=== PATIENT | male | born 1990 | race Caucasian/White ===

== ENCOUNTER 2016-06-13 19:51 | Emergency (ER) | payer OTHER ==
[~2016-06-13] VITALS: Ht 170.2 cm; Wt 68.0 kg
[2016-06-13] MEDS ORDERED: CHLO0.12 (20:23)
[2016-06-13] MEDS ORDERED: IBUP80TA (20:23)
[2016-06-13] MEDS ORDERED: BUPR8SUB (20:23)
[2016-06-13] MEDS ORDERED: ASPIRIN 81 MG CHEW TABLET PO ONE (20:45)
[2016-06-13 21:11] LABS: ALBUMIN 4.1 GM/DL (3.2-5.2); ALBUMIN/GLOBULIN RATIO 1.08 (1.00-1.93); ALKALINE PHOSPHATASE 85 U/L (45-117); ALT/SGPT 21 U/L (12-78); ANION GAP 7 MEQ/L (8-16); AST/SGOT 16 U/L (15-37); BILIRUBIN,DIRECT 0.1 MG/DL (0.0-0.2); BILIRUBIN,TOTAL 0.4 MG/DL (0.2-1.0); BLOOD UREA NITROGEN 15 MG/DL (7-18); CARBON DIOXIDE LEVEL 31 MEQ/L (21-32); CHLORIDE LEVEL 102 MEQ/L (98-107); CREATININE FOR GFR 1.02 MG/DL (0.70-1.30); GLOMERULAR FILTRATION RATE > 60.0 (>60); GLUCOSE, FASTING 80 MG/DL (70-105); POTASSIUM SERUM 3.8 MEQ/L (3.5-5.1); SODIUM LEVEL 140 MEQ/L (136-145); TOTAL PROTEIN 7.9 GM/DL (6.4-8.2)
[2016-06-13 21:13] LABS: EOS % 7.3 % (0.0-3.0); LYMPH % 22.1 % (24.0-44.0); MEAN CORPUSCULAR HEMOGLOBIN 32.3 pg (27.0-33.0); MEAN CORPUSCULAR HGB CONC 35.9 g/dl (32.0-36.5); MEAN CORPUSCULAR VOLUME 90.1 fl (80.0-96.0); MONO % 6.6 % (0.0-5.0); NEUTROPHILS % 61.5 % (36.0-66.0); PLATELET COUNT, AUTOMATED 332 k/mm3 (150-450); RED CELL DISTRIBUTION WIDTH 11.6 % (11.5-14.5)
[2016-06-13 21:14] LABS: BASO # 0.1 K/mm3 (0.0-0.2); BASO % 0.6 % (0.0-1.0); EOS # 0.7 K/mm3 (0.0-0.50); LARGE UNSTAINED CELL # 0.2 K/mm3 (0.0-0.4); LARGE UNSTAINED CELL % 1.9 % (0.0-4.0); LYMPH # 2.2 K/mm3 (1.5-6.5); MONO # 0.7 K/mm3 (0.0-0.8); NEUTROPHILS # 6.2 K/mm3 (1.8-7.7)
[2016-06-13] MEDS ORDERED: ISOVUE-370 76% 100ML VIAL (Q9967) As Ordered ONE (22:16)
--- NOTE | 2016-06-13 22:40 | REPUSA ---
CT angiogram of the chest Clinical statement: Chest pain and shortness of breath. Technique: Multiple axial CT images were obtained from the thoracic inlet through the upper abdomen a fter a bolus administration of nonionic intravenous contrast. Coronal and sagittal reconstructions we re also obtained. No comparison is available. Findings: The pulmonary arteries are well-opacified with contrast, with no intraluminal filling defec ts to suggest embolism. The thoracic aorta is unremarkable. Thyroid gland is within normal limits. Th ere is no thoracic lymphadenopathy. There are no pericardial or pleural effusions. The lungs are patricia r. Limited imaging of the upper abdomen is unremarkable. There are no suspicious osseous lesions. Impression: Unremarkable CT examination of the chest. No evidence of pulmonary embolism.
[2016-06-13] MEDS ORDERED: GI COCKTAIL 50ML BTL(HYOSCYAMINE/MAALOX/LIDOCAINE VISCOUS)(1:3:1) PO ONE (23:15)
[2016-06-13 23:21] VITALS: BP 125/73
--- NOTE | 2016-06-14 08:00 | REP ---
Chest one-view HISTORY: Chest pain Comparison: None The lungs are clear. The heart is normal in size. The pulmonary vasculature is normal in appearance. Impression: No acute disease. Signed by Orion Fraga MD 06/14/2016 07:52 A
--- NOTE | 2016-06-15 05:52 | ECGEPIP ---
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
== END 2016-06-13 23:32 | disposition home or self-care (01) ==
LOC: M ED 21:30
DX: R07.9 Chest pain, unspecified (principal); Z88.0 Allergy status to penicillin; Z79.1 Long term (current) use of non-steroidal anti-inflammatories (NSAID); Z79.899 Other long term (current) drug therapy; F17.210 Nicotine dependence, cigarettes, uncomplicated

== ENCOUNTER 2019-08-07 21:11 | Observation (INO) | payer OTHER ==
[~2019-08-07] VITALS: Ht 175.3 cm; Wt 56.8 kg
[~2019-08-07 21:11] MED LIST: BUPR8SUB; CHLO0.12; IBUP80TA
[2019-08-07] MEDS ORDERED: diphenhydrAMINE 50MG/ML VIAL (J1200) IM ONE (21:30)
[2019-08-07] MEDS ORDERED: LORazepam 2 MG/ML VIAL IM ONE (21:30)
[2019-08-07] MEDS ORDERED: HALOPERIDOL 5MG/ML VIAL (J1630 PER 1) IM ONE (21:30)
[2019-08-07] MEDS ORDERED: NS 1,000 ML IV ONE (21:45)
[2019-08-07 22:39] LABS: BASO % 0.2 % (0.0-1.0); HEMATOCRIT 42.8 % (42.0-52.0); HEMOGLOBIN 15.6 g/dl (13.5-17.5); LYMPH # 0.4 10^3/uL (1.5-5.0); LYMPH % 2.9 % (24.0-44.0); MEAN CORPUSCULAR HEMOGLOBIN 31.6 pg (27.0-33.0); MEAN CORPUSCULAR HGB CONC 36.4 g/dl (32.0-36.5); MEAN CORPUSCULAR VOLUME 86.6 fl (80.0-96.0); MONO # 0.7 10^3/uL (0.0-0.8); MONO % 4.9 % (0.0-5.0); NEUTROPHILS # 12.6 10^3/uL (1.5-8.5); NEUTROPHILS % 91.6 % (36.0-66.0); PLATELET COUNT, AUTOMATED 310 10^3/uL (150-450); RED BLOOD COUNT 4.94 10^6/uL (4.30-6.10); WHITE BLOOD COUNT 13.8 10^3/uL (4.0-10.0)
[2019-08-07 23:00] LABS: AMPHETAMINES LEVEL URINE POSITIVE (NEGATIVE); BARBITURATES URINE NEGATIVE (NEGATIVE); BENZODIAZEPINES URINE NEGATIVE (NEGATIVE); CANNABINOIDS URINE POSITIVE (NEGATIVE); COCAINE METABOLITE URINE POSITIVE (NEGATIVE); METHADONE URINE NEGATIVE (NEGATIVE); OPIATES URINE NEGATIVE (NEGATIVE); PHENCYCLIDINE URINE NEGATIVE (NEGATIVE)
[2019-08-07 23:18] LABS: ACETAMINOPHEN LEVEL < 2.0 UG/ML (10.0-30.0); ALBUMIN 4.8 GM/DL (3.2-5.2); ALT/SGPT 56 U/L (12-78); BILIRUBIN,DIRECT 0.4 MG/DL (0.0-0.2); BILIRUBIN,TOTAL 1.4 MG/DL (0.2-1.0); BLOOD UREA NITROGEN 30 MG/DL (7-18); CALCIUM LEVEL 9.7 MG/DL (8.5-10.1); CARBON DIOXIDE LEVEL 27 MEQ/L (21-32); CHLORIDE LEVEL 106 MEQ/L (98-107); CPK CREATINE PHOSPHOKINASE 1954 U/L (39-308); CREATININE FOR GFR 1.45 MG/DL (0.70-1.30); ETHYL ALCOHOL (ETHANOL) < 0.003 % (0.000-0.010); GLOMERULAR FILTRATION RATE > 60.0 (>60); GLUCOSE, FASTING 109 MG/DL (70-100); POTASSIUM SERUM 3.8 MEQ/L (3.5-5.1); SALICYLATE LEVEL < 1.7 MG/DL (5.0-30.0); SODIUM LEVEL 139 MEQ/L (136-145); THYROID STIMULATING HORMONE 0.472 uIU/ML (0.358-3.740)
[2019-08-07] MEDS ORDERED: LORazepam 2 MG/ML VIAL IV STA (23:48)
[2019-08-08] MEDS ORDERED: NS 1,690 ML in IV 1 EA IV ONE ×2
[2019-08-08] MEDS ORDERED: LORazepam 2 MG/ML VIAL IV STA
--- NOTE | 2019-08-08 01:35 | REPVR ---
PROCEDURE INFORMATION: Exam: CT Head Without Contrast Exam date and time: 08/08/2019 12:00 AM Age: 29 years old Clinical indication: Altered mental status/memory loss; Confusion or disorientation; Additional info: AMS TECHNIQUE: Imaging protocol: Computed tomography of the head without contrast. Radiation optimization: All CT scans at this facility use at least one of these dose optimization techniques: automated exposure control; mA and/or kV adjustment per patient size (includes targeted exams where dose is matched to clinical indication); or iterative reconstruction. COMPARISON: No relevant prior studies available. FINDINGS: Brain: Normal. No hemorrhage. Unremarkable white matter. No mass effect. Ventricles: Normal. No ventriculomegaly. Bones/joints: Unremarkable. No acute fracture. Sinuses: Visualized sinuses are unremarkable. No fluid levels. Mastoid air cells: Visualized mastoid air cells are well aerated. Soft tissues: Unremarkable. IMPRESSION: No acute intracranial abnormality. Electronically signed by: Robert Garcia On 08/08/2019 01:35:19 AM
--- NOTE | 2019-08-08 01:38 | REPVR ---
PROCEDURE INFORMATION: Exam: CT Cervical Spine Without Contrast Exam date and time: 08/08/2019 12:00 AM Age: 29 years old Clinical indication: Neck pain; Additional info: AMS TECHNIQUE: Imaging protocol: Computed tomography images of the cervical spine without contrast. Radiation optimization: All CT scans at this facility use at least one of these dose optimization techniques: automated exposure control; mA and/or kV adjustment per patient size (includes targeted exams where dose is matched to clinical indication); or iterative reconstruction. COMPARISON: No relevant prior studies available. FINDINGS: Vertebrae: Moderate levoconvex curvature. Vertebral body height and AP alignment is preserved. No acute cervical spine fracture. Discs/Spinal canal/Neural foramina: No definite significant central canal stenosis. Soft tissues: Unremarkable. Lungs: Lung apices are normal. Pleural space: No visible pneumothorax. IMPRESSION: No acute osseous abnormality. Electronically signed by: Robert Garcia On 08/08/2019 01:38:11 AM
[2019-08-08] MEDS ORDERED: LORazepam 2 MG/ML VIAL As Ordered ONE (02:39)
[2019-08-08 05:13] LABS: BLOOD UREA NITROGEN 27 MG/DL (7-18); CALCIUM LEVEL 8.5 MG/DL (8.5-10.1); CARBON DIOXIDE LEVEL 23 MEQ/L (21-32); CHLORIDE LEVEL 115 MEQ/L (98-107); CPK CREATINE PHOSPHOKINASE 2033 U/L (39-308); CREATININE FOR GFR 1.12 MG/DL (0.70-1.30); GLOMERULAR FILTRATION RATE > 60.0 (>60); GLUCOSE, FASTING 89 MG/DL (70-100); POTASSIUM SERUM 4.2 MEQ/L (3.5-5.1); SODIUM LEVEL 147 MEQ/L (136-145)
--- NOTE | 2019-08-08 06:24 | HPEPDOC ---
[facility] Medical History & Physical Date of Admission Aug 08, 2019 Date of Service: Aug 08, 2019 Attending Physician: NATI MONZON MD History and Physical CHIEF COMPLAINT: Drug use HISTORY OF PRESENT ILLNESS: 29-year-old male was brought in by police officers for aggressive behavior secondary to drug use. Patient was very aggressive required 6 mg of Ativan, 5 mg of Haldol and 50 mg of Benadryl to sedate. His U tox was positive for amphetamines, cocaine and cannabinoids. He has remains sedated in the emergency department and after 6-8 months of observation he remains sedated and required admission for observation. At the time of my evaluation patient opened his eyes for a few seconds upon tactile stimuli and went back to sleep, didn't speak or follow commands. PAST MEDICAL HISTORY: 1. Unable to obtain. PAST SURGICAL HISTORY: 1. Unable to obtain. SOCIAL HISTORY: Unable to obtain FAMILY HISTORY: Unable to obtain ALLERGIES: Please see below. REVIEW OF SYSTEMS: Unable to obtain HOME MEDICATIONS: Please see below. PHYSICAL EXAMINATION: VITAL SIGNS: Please see below. Patient did not allow me to examine LABORATORY DATA: See below. IMAGING: CT head negative for acute pathology MICROBIOLOGY: Please see below. ASSESSMENT: 29-year-old male who was brought in by police officers secondary to drug use and aggressive/combative behavior requiring multiple sedatives is being admitted for observation due to persistent sedation and mild rhabdomyolysis. PLAN: 1. Drug use. With aggressive behavior, required Ativan 6 mg, Haldol 5 mg and Benadryl 50 mg to adequately sedate the patient, remains sedated after 6-8 hours of monitoring in the ER, CK elevated, continue IV hydration and admitted for observation until patient is more alert and oriented. Vital Signs Vital Signs Date Time Temp Pulse Resp B/P (MAP) Pulse Ox O2 Delivery O2 Flow Rate FiO2 08/08/19 03:45 141/79 (99) 08/08/19 03:34 60 100 08/08/19 02:49 16 08/07/19 22:57 Room Air 08/07/19 21:36 97.9 Laboratory Data Labs 24H Laboratory Tests 2 08/07/19 22:19: Urine Opiates Screen NEGATIVE, Urine Methadone Screen NEGATIVE, Urine Barbiturates Screen NEGATIVE, Urine Phencyclidine Screen NEGATIVE, Urine Amphetamines Screen POSITIVEH, Urine Benzodiazepines Screen NEGATIVE, Urine Cocaine Metabolite Screen POSITIVEH, Urine Cannabinoids Screen POSITIVEH 08/07/19 22:26: Immature Granulocyte % (Auto) 0.4, Neutrophils (%) (Auto) 91.6H, Lymphocytes (%) (Auto) 2.9L, Monocytes (%) (Auto) 4.9, Eosinophils (%) (Auto) 0.0, Basophils (%) (Auto) 0.2, Neutrophils # (Auto) 12.6H, Lymphocytes # (Auto) 0.4L, Monocytes # (Auto) 0.7, Eosinophils # (Auto) 0.0, Basophils # (Auto) 0.0, Nucleated Red Blood Cells % (auto) 0.0, Anion Gap 6L, Glomerular Filtration Rate > 60.0, Calcium Level 9.7, Total Bilirubin 1.4H, Direct Bilirubin 0.4H, Aspartate Amino Transf (AST/SGOT) 67H, Alanine Aminotransferase (ALT/SGPT) 56, Alkaline Phosphatase 71, Total Creatine Kinase 1954H, Total Protein 8.0, Albumin 4.8, Albumin/Globulin Ratio 1.5, Thyroid Stimulating Hormone (TSH) 0.472, Salicylates Level < 1.7L, Acetaminophen Level < 2.0L, Ethyl Alcohol Level < 0.003 08/08/19 03:49: Anion Gap 9, Glomerular Filtration Rate > 60.0, Calcium Level 8.5, Total Crea veda Kinase 2033H CBC/BMP Laboratory Tests 08/07/19 22:26 08/08/19 03:49 Home Medications Unable to Obtain Active Prescriptions or Reported Meds Allergies Coded Allergies: Penicillins (Verified Allergy, Unknown, 08/07/19) A-FIB/CHADSVASC A-FIB History Current/History of A-Fib/PAF?: No NATI MONZON MD Aug 08, 2019 06:24
[2019-08-08] MEDS: NS 0.45% 1,000 ML IV SCH ×2 (06:48→16:40)
--- NOTE | 2019-08-08 07:51 | ECGEPIP ---
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
[2019-08-08 08:00] VITALS: BP 129/82
[2019-08-08 12:00] VITALS: BP 145/86
[2019-08-08 16:00] VITALS: BP 136/83
[2019-08-08 20:00] VITALS: BP 127/82
[2019-08-09] VITALS: BP 125/74
[2019-08-09] MEDS: NS 0.45% 1,000 ML IV SCH ×2 (02:31→12:15)
[2019-08-09 04:00] VITALS: BP 122/76
[2019-08-09 05:32] LABS: HEMATOCRIT 37.8 % (42.0-52.0); MEAN CORPUSCULAR HEMOGLOBIN 31.3 pg (27.0-33.0); MEAN CORPUSCULAR HGB CONC 34.7 g/dl (32.0-36.5); MEAN CORPUSCULAR VOLUME 90.4 fl (80.0-96.0); PLATELET COUNT, AUTOMATED 241 10^3/uL (150-450); RED BLOOD COUNT 4.18 10^6/uL (4.30-6.10)
[2019-08-09 05:38] LABS: HEMOGLOBIN 13.1 g/dl (13.5-17.5)
[2019-08-09 05:55] LABS: ALBUMIN 3.1 GM/DL (3.2-5.2); ALT/SGPT 48 U/L (12-78); BILIRUBIN,TOTAL 0.8 MG/DL (0.2-1.0); BLOOD UREA NITROGEN 18 MG/DL (7-18); CALCIUM LEVEL 8.6 MG/DL (8.5-10.1); CARBON DIOXIDE LEVEL 28 MEQ/L (21-32); CHLORIDE LEVEL 110 MEQ/L (98-107); GLOMERULAR FILTRATION RATE > 60.0 (>60); GLUCOSE, FASTING 84 MG/DL (70-100); POTASSIUM SERUM 4.1 MEQ/L (3.5-5.1); SODIUM LEVEL 144 MEQ/L (136-145); TOTAL PROTEIN 5.5 GM/DL (6.4-8.2)
[2019-08-09 08:00] VITALS: BP 125/78
[2019-08-09 12:00] VITALS: BP 140/76
--- NOTE | 2019-08-09 12:23 | DS.PDOC ---
Discharge Summary General Date of Admission Aug 07, 2019 at 21:12 Date of Discharge 08/09/19 Attending Physician: NATI MONZON MD Discharge Summary PROCEDURES PERFORMED DURING STAY: None. ADMITTING DIAGNOSES: 1. Drug abuse, aggressive behavior, altered mental status. DISCHARGE DIAGNOSES: 1. Drug abuse, aggressive behavior, altered mental status. COMPLICATIONS/CHIEF COMPLAINT: Altered Mental Status. HISTORY OF PRESENT ILLNESS: 29-year-old male was brought in by the police for aggressive behavior and altered mental status secondary to drug abuse. Patient required excessive medication to sedate and he was admitted for observation due to prolonged sedation and altered mental status. Throughout yesterday, patient became more alert and oriented, was able to tolerate a diet and has been at his baseline since last night. Patient seen in the morning, without any complaints at this time, wishing to go home, not displaying any effects of drug withdrawal. HOSPITAL COURSE: As above. DISCHARGE MEDICATIONS: Please see below. ALLERGIES: Please see below. PHYSICAL EXAMINATION: VITAL SIGNS: Please see below. GENERAL: No distress HEENT: Normocephalic, atraumatic, moist mucous membranes NECK: Supple CARDIOVASCULAR EXAMINATION: S1, S2, no murmurs RESPIRATORY EXAMINATION: Clear to auscultation, no wheezing ABDOMINAL EXAMINATION: Soft, nontender, nondistended, positive bowel sounds EXTREMITIES: Range of motion intact SKIN: No rash NEUROLOGICAL EXAMINATION: Alert and oriented 3, no focal deficits PSYCHIATRIC EXAMINATION: Calm and cooperative LABORATORY DATA: Please see below. IMAGING: CT head was negative for acute pathology PROGNOSIS: Fair ACTIVITY: As tolerated. DIET: Regular DISCHARGE PLAN: Follow with PCP in 1-2 weeks DISPOSITION: Home. DISCHARGE INSTRUCTIONS: 1. As above. DISCHARGE CONDITION: Stable. TIME SPENT ON DISCHARGE: Greater than 20 minutes. Vital Signs/I&Os Vital Signs Date Time Temp Pulse Resp B/P (MAP) Pulse Ox O2 Delivery O2 Flow Rate FiO2 08/09/19 12:00 98.8 77 18 140/76 (97) 100 Room Air 08/08/19 07:30 4.0 I&O- Last 24 Hours up to 6 AM 08/09/19 06:00 Intake Total 720 ml Output Total 0 ml Balance 720 ml Laboratory Data Labs 24H Laboratory Tests 2 08/09/19 05:10: Nucleated Red Blood Cells % (auto) 0.0, Anion Gap 6L, Glomerular Filtration Rate > 60.0, Calcium Level 8.6, Magnesium Level 2.0, Total Bilirubin 0.8, Aspartate Amino Transf (AST/SGOT) 60H, Alanine Aminotransferase (ALT/SGPT) 48, Alkaline Phosphatase 53, Total Protein 5.5#L, Albumin 3.1#L, Albumin/Globulin Ratio 1.3 CBC/BMP Laboratory Tests 08/09/19 05:10 Discharge Medications Unable to Obtain Active Prescriptions or Reported Meds Allergies Coded Allergies: Penicillins (Verified Allergy, Unknown, 08/07/19) NATI MONZON MD Aug 09, 2019 12:23
== END 2019-08-09 14:51 | disposition home or self-care (01) ==
LOC: M ED 21:11 → M ED INP 21:12 → ENRESERV 08-08 07:25 → M PCU 08-08 07:59
PROVIDERS: ADMIT Internal Medicine; ATTEND Internal Medicine
DX: F19.10 Other psychoactive substance abuse, uncomplicated (principal); F91.8 Other conduct disorders; R41.82 Altered mental status, unspecified; M62.82 Rhabdomyolysis; Z88.0 Allergy status to penicillin
CPT/HCPCS: 36415; 51701; 70450; 72125; 80048; 80053; 80076; 80307; 82550; 83735; 84443; 85025; 85027; 93005; 93041; 94760; 96361; 96372; 96374; 96376; 99285; G0480; J1200; J1630; J2060